=== PATIENT | male | born 1980 | race Caucasian/White ===

== ENCOUNTER 2017-09-25 21:15 | Emergency (ER) | payer MEDICAID ==
[~2017-09-25] VITALS: Ht 177.8 cm; Wt 63.5 kg
[2017-09-25 21:17] VITALS: BP 113/71
== END 2017-09-25 23:51 | disposition home or self-care (01) ==
LOC: ER 21:15
DX: S13.4XXA Sprain of ligaments of cervical spine, initial encounter (principal); V89.2XXA Person injured in unspecified motor-vehicle accident, traffic, initial encounter; Y93.89 Activity, other specified; Y92.89 Other specified places as the place of occurrence of the external cause; Y99.8 Other external cause status
CPT/HCPCS: A4606; Z7610